=== PATIENT | male | born 1955 | race Two or more races ===

== ENCOUNTER 2019-06-11 09:32 | Day surgery (SDC) | payer OTHER ==
[~2019-06-11 09:32] MED LIST: AMBIEN5 MG PO; GAS RELIEF125 MG PO; NABUMETONE500 MG PO; TAMS0.4C PO
== END 2019-06-11 22:45 | disposition home or self-care (01) ==
LOC: CIR.AMB 09:32
DX: K64.8 Other hemorrhoids (principal); K64.4 Residual hemorrhoidal skin tags